=== PATIENT | male | born 2000 | race Caucasian/White ===

== ENCOUNTER 2021-10-28 15:42 | Inpatient (IN) ==
[2021-10-28 16:11] LABS: Basophils # (auto) 0.04 K/uL (0-0.2); Basophils % (auto) 0.8 %; Eosinophils # (auto) 0.06 K/uL (0-0.5); Eosinophils % (auto) 1.1 %; Hematocrit (blood only) 33.1 % (42-52); Hemoglobin 11.5 g/dL (14.0-18.0); Immature Granulocytes # (auto) 0.04 K/uL (0.00-0.02); Immature Granulocytes % (auto) 0.8 %; Lymphocytes # (auto) 1.39 K/uL (1.2-3.4); Lymphocytes % (auto) 26.1 %; Mean Corpuscular Hemoglobin 29.9 pg (25-34); Mean Corpuscular Hgb Conc 34.7 g/dL (32-36); Mean Corpuscular Volume 86.2 fL (80-100); Mean Platelet Volume 9.9 fL (7.4-10.4); Monocytes # (auto) 0.44 K/uL (0.11-0.59); Monocytes % (auto) 8.3 %; Neutrophils # (auto) 3.36 K/uL (1.4-6.5); Neutrophils % (auto) 62.9 %; Platelet Count 213 K/uL (130-400); RDW Coefficient of Variation 12.7 % (11.5-14.5); RDW Standard Deviation 39.6 fL (36.4-46.3); Red Blood Count 3.84 M/uL (4.7-6.1); White Blood Count 5.33 K/uL (4.8-10.8)
[2021-10-28 16:14] LABS: Appearance Urine Clear (Clear); Bilirubin Urine Negative (Negative); Blood Urine Negative (Negative); Color Urine Yellow; Glucose Urine UA Negative (Negative); Ketones Urine Negative (Negative); Leukocyte Esterase Urine Negative (Negative); Nitrite Urine Negative (Negative); Protein Urine Negative (Negative); Specific Gravity Urine 1.003 (1.000-1.030); Urobilinogen Urine Negative (Negative); pH Urine 7.5 (4.5-7.5)
[2021-10-28] MEDS ORDERED: SODIUM CHLORIDE 0.9% 1000ML 1,000 ML IV ONE (16:30)
[2021-10-28] MEDS ORDERED: GI COCKTAIL ED USE PO ONE (16:30)
[2021-10-28] MEDS ORDERED: PANTOprazole 80 MG in DEXTROSE 5% 100 ML IV STA (16:30)
--- NOTE | 2021-10-28 16:30 | Emergency Department Note ---
Impression & Plan Upper gastrointestinal hemorrhage, Anemia, Abdominal pain ED Provider Note NAME: PRIYA GARCIA AGE: 21 SEX: M : 2000 ARRIVES VIA: Walk-In INFORMANT: Patient ED PROVIDER(S): Stephon King DO CHIEF COMPLAINT: dark stools HPI: Patient is a 21-year-old male who is a college student who presents to the ER for dark stools which started this past Thursday. He noticed some epigastric abdominal pain. Walking to class today he felt a little dizzy and consequently went to [employer]. They checked his stools and noticed that it was heme positive and referred him in. He denies any chest pain or shortness of breath. No dysuria, urgency, or frequency. Pain in the epigastric region is a dull ache 1 out of 10. He denies any significant NSAID usage or steroid use. He does admit to drinking Thursday and Thursday weekly. He has about 10 drinks a week. No other exacerbating or remitting factors. He has an appoint with Dr. Louis this Thursday. ROS: See above HPI for pertinent positives & negatives. A total of 10 systems reviewed and were otherwise negative. PAST MEDICAL HISTORY:See Below PAST SURGICAL HISTORY:See Below FAMILY HISTORY:See Below SOCIAL HISTORY:See Below HOME MEDICATIONS:See Below ALLERGIES:See Below VITALS:See Below PHYSICAL EXAMINATION: GENERAL: Sitting up in bed, alert, well appearing, well nourished, no distress, non-toxic EYE EXAM: normal conjunctiva. PERRL and EOM's grossly intact. OROPHARYNX: no exudate, no erythema, lips, buccal mucosa, and tongue normal and mucous membranes are moist NECK: supple, no nuchal rigidity, no adenopathy, non-tender LUNGS: Clear to auscultation. Normal chest wall mechanics HEART: no murmurs, S1 normal and S2 normal ABDOMEN: abdomen soft, Pain tenderness in the epigastric region, normo-active bowel sounds, no masses, no rebound or guarding. UPPER EXTREMITIES: upper extremities are grossly normal. LOWER EXTREMITIES: No pitting edema. NEURO EXAM: Normal sensorium, cranial nerves II-XII grossly intact, normal speech, no gross weakness of arms, no gross weakness of legs. MEDICAL DECISION MAKING: Patient is a 21-year-old male who presents the ER for the below stated complaint. IV was established blood work was obtained. Labs show hemoglobin of 11.5. No previous to compare to. BMP was remarkable for slightly elevated glucose at 105. Bilirubin LFTs and lipase are unremarkable. UA was clean. Covid negative.CT abdomen pelvis showed no acute pathology. Stools are dark/black and tarry. Discussed with Dr. Bob Deal who agrees with admitting the patient and scoping in the morning. Updated the hospitalist in regards to this. Patient was given Protonix drip and bolus. Patient was also given IV fluids. Triage Nursing notes reviewed. Limited review of prior medical records performed Vital Signs: reviewed and remarkable for tachy Differential diagnosis: Differential diagnoses includes but is not limited to gastritis, peptic ulcer disease, GERD, gallbladder disease, pancreatitis, small bowel obstruction, acute coronary syndrome, pericarditis, ischemic bowel, irritable bowel disease, irritable bowel syndrome, appendicitis, diverticulitis, malignancy, hernia, urinary tract infection, torsion, perforation, trauma, infectious. ER treatment provided: See below Diagnostics interpreted by me: ECG: none Cardiac Monitoring: An order was placed for continuous cardiac monitoring. The monitor shows a rate of 99 with sinus rhythm. Laboratory studies: As stated above and show below. Imaging studies: See below Consultation(s): Discussed the hospitalist for further evaluation Discussed with Bob Deal from [facility] and they will scope in the morning Procedures: none Critical Care: None Past Med/Surg History Social History Smoking Status: Never smoker Feels Safe at Home: Yes Allergies Allergies Allergy/AdvReac Type Severity Reaction Status Date / Time amoxicillin Allergy Intermediate Hives Verified 10/28/21 17:31 Penicillins Allergy Intermediate Hives Verified 10/28/21 17:31 Home Meds Home Medications Medication Instructions Recorded Confirmed No Known Home Medications 10/28/21 10/28/21 Results & Data (ED) Vital Signs Vital Signs - 24 hr 10/28/21 15:44 10/28/21 16:01 10/28/21 17:07 Temperature 37.5 C Temperature Source Temporal Artery Scan Pulse Rate 109 H 100 H Respiratory Rate 16 15 Blood Pressure 140/79 Blood Pressure Mean 99 Pulse Oximetry 100 95 100 Oxygen Delivery Method Room Air Room Air Room Air Sepsis Recent Fever Within 48 Hours No Sepsis New/Unexplained Change in Mental Status N/A Sepsis Action Taken by Nursing No Action Required 10/28/21 17:30 10/28/21 18:00 10/28/21 18:30 Temperature Temperature Source Pulse Rate 102 H 104 H 106 H Respiratory Rate 21 20 18 Blood Pressure Blood Pressure Mean Pulse Oximetry 98 100 97 Oxygen Delivery Method Room Air Room Air Room Air Sepsis Recent Fever Within 48 Hours Sepsis New/Unexplained Change in Mental Status Sepsis Action Taken by Nursing 10/28/21 19:00 10/28/21 19:30 10/28/21 19:31 Temperature Temperature Source Pulse Rate 106 H 113 H 101 H Respiratory Rate 21 13 15 Blood Pressure 135/81 Blood Pressure Mean 99 Pulse Oximetry 96 Oxygen Delivery Method Room Air Sepsis Recent Fever Within 48 Hours Sepsis New/Unexplained Change in Mental Status Sepsis Action Taken by Nursing 10/28/21 20:00 Temperature Temperature Source Pulse Rate 100 H Respiratory Rate 17 Blood Pressure Blood Pressure Mean Pulse Oximetry 97 Oxygen Delivery Method Room Air Sepsis Recent Fever Within 48 Hours Sepsis New/Unexplained Change in Mental Status Sepsis Action Taken by Nursing Laboratory Data Result diagrams: 10/28/21 15:57 10/28/21 15:57 Lab Results 10/28/21 10/28/21 10/28/21 Range/Units 15:57 15:57 15:57 WBC 5.33 (4.8-10.8) K/uL RBC 3.84 L (4.7-6.1) M/uL Hgb 11.5 L (14.0-18.0) g/dL Hct 33.1 L (42-52) % MCV 86.2 (80-100) fL MCH 29.9 (25-34) pg MCHC 34.7 (32-36) g/dL RDW Std Deviation 39.6 (36.4-46.3) fL RDW Coeff of Hernán 12.7 (11.5-14.5) % Plt Count 213 (130-400) K/uL MPV 9.9 (7.4-10.4) fL Immature Gran % (Auto) 0.8 % Neut % (Auto) 62.9 % Lymph % (Auto) 26.1 % [place] % (Auto) 8.3 % Eos % (Auto) 1.1 % Baso % (Auto) 0.8 % Neut # (Auto) 3.36 (1.4-6.5) K/uL Lymph # (Auto) 1.39 (1.2-3.4) K/uL [place] # (Auto) 0.44 (0.11-0.59) K/uL Eos # (Auto) 0.06 (0-0.5) K/uL Baso # (Auto) 0.04 (0-0.2) K/uL Immature Gran # (Auto) 0.04 H (0.00-0.02) K/uL Sodium 136 (136-145) mmol/L Potassium 3.7 (3.5-5.1) mmol/L Chloride 101 (98-107) mmol/L Carbon Dioxide 29 (21-32) mmol/L Anion Gap 6 (3-11) BUN 17 (6-23) mg/dl Creatinine 0.82 (0.6-1.4) mg/dl Est Cr Clr Drug Dosing 155.1 ml/min Est GFR ( Amer) 145.5 ml/min Est GFR (Non-Af Amer) 125.5 ml/min BUN/Creatinine Ratio 20.7 H (10-20) Glucose 105 H (70-99(Fasting)) mg/dl Calcium 9.9 (8.5-10.1) mg/dl Total Bilirubin 0.5 (0.2-1.0) mg/dl AST 19 (13-39) U/L ALT 24 (7-52) U/L Alkaline Phosphatase 42 (34-104) U/L Total Protein 7.3 (6.0-8.3) gm/dl Albumin 4.7 (3.4-5.0) gm/dl Globulin 2.6 (2.5-4.0) gm/dl Albumin/Globulin Ratio 1.8 (0.9-2) Lipase 20 (11-82) U/L Urine Color Yellow Urine Appearance Clear (Clear) Urine pH 7.5 (4.5-7.5) Ur Specific [place] 1.003 (1.000-1.030) Urine Protein Negative (Negative) Urine Glucose (UA) Negative (Negative) Urine Ketones Negative (Negative) Urine Blood Negative (Negative) Urine Nitrite Negative (Negative) Urine Bilirubin Negative (Negative) Urine Urobilinogen Negative (Negative) Ur Leukocyte Esterase Negative (Negative) Administered Medications Pantoprazole Sodium 40 mg/ (Dextrose) 100 mls @ 20 mls/hr IV Q5H COLBY Stop: 11/27/21 18:44 Last Admin: 10/28/21 19:33 Dose: 8 mg/hr, 20 mls/hr Documented by: [id number] Discontinued Medications Al Hydrox/Mg Hydrox/Simethicone (Gi Cocktail Ed Use) 1 dose PO ONE ONE Stop: 10/28/21 16:31 Last Admin: 10/28/21 17:04 Dose: 1 dose Documented by: [id number] Sodium Chloride (Nss 1000ml) 1,000 mls @ 999 mls/hr IV .Q1H1M ONE Stop: 10/28/21 17:30 Last Infusion: 10/28/21 18:29 Dose: 0 mls/hr Documented by: [id number] Admin: 10/28/21 17:04 Dose: 999 mls/hr Documented by: [id number] Pantoprazole Sodium 80 mg/ (Dextrose) 100 mls @ 400 mls/hr IV ONE STA Stop: 10/28/21 16:44 Last Infusion: 10/28/21 18:29 Dose: 0 mls/hr Documented by: [id number] Admin: 10/28/21 17:58 Dose: 400 mls/hr Documented by: [id number] Ioversol (Optiray 320 125ml) 91 ml IV ONCE ONE Stop: 10/28/21 17:19 Last Admin: 10/28/21 17:18 Dose: 91 ml Documented by: [id number] Ioversol (Optiray 320 100ml) 91 ml IV ONCE ONE Stop: 10/28/21 17:19 Last Admin: 10/28/21 17:19 Dose: 91 ml Documented by: [id number] Imaging Data Radiologist's Impression: Abdomen/Pelvis CT 10/28/21 16:27 CT OF THE ABDOMEN AND PELVIS WITH CONTRAST CLINICAL HISTORY: epigastric abd pain dark stool hgb 11 COMPARISON STUDY: None. TECHNIQUE: Following IV administration of 91 mL of Optiray, axial images of the abdomen and pelvis were obtained from the lung bases to the proximal femurs. Images were reviewed in the axial, sagittal, and coronal planes. IV contrast was administered without complication. Automated exposure control was utilized for the study. A dose lowering technique was utilized adhering to the principles of ALARA. CT DOSE: 367.82 mGy.cm FINDINGS: Lung bases are unremarkable. No pneumatosis, free air or portal venous gas is present. There are no hepatic lesions. Liver morphology is normal. Mild splenomegaly is noted. No biliary or pancreatic ductal dilatation is present. The adrenal glands, kidneys and pancreas are normal. There is no hydronephrosis. The caliber and wall thickness of small and large bowel are normal. The appendix is normal. There is no ascites or lymphadenopathy. Bladder is mildly distended. Major vasculature is patent. IMPRESSION: 1. No acute process within the abdomen or pelvis. 2. Mild splenomegaly. 3. No bowel obstruction. No bowel wall thickening. Normal appendix. ACT 112: Negative or not required by law. Electronically signed by: Joon De Leon M.D. 10/28/2021 6:02 PM Discharge Plan Visit Data Chief Complaint: GI Assessment Stated Complaint: UPPER ABD PAIN- [facility] ED Provider: Stephon King Discharge Problem: Upper gastrointestinal hemorrhage, Anemia, Abdominal pain Patient Disposition: Admitted As Inpatient Discharge Instructions Interventions: ED Discharge Assessment Last Done: 10/28/21 21:20
[2021-10-28 16:45] LABS: Albumin Globulin Ratio 1.8 (0.9-2); Albumin Level 4.7 gm/dl (3.4-5.0); BUN Creatinine Ratio 20.7 (10-20); Bilirubin,Total 0.5 mg/dl (0.2-1.0); Calcium 9.9 mg/dl (8.5-10.1); Creatinine Clr Calc Pharmacy 155.1 ml/min; Est GFR (African American) 145.5 ml/min; Est GFR (Non-African American) 125.5 ml/min; Globulin 2.6 gm/dl (2.5-4.0); Potassium 3.7 mmol/L (3.5-5.1); Total Protein 7.3 gm/dl (6.0-8.3)
[2021-10-28] MEDS ORDERED: OPTIRAY 320 100ml IV ONE (17:18)
[2021-10-28] MEDS ORDERED: OPTIRAY 320 125ml IV ONE (17:18)
--- NOTE | 2021-10-28 18:03 | CT Scan Report ---
CT OF THE ABDOMEN AND PELVIS WITH CONTRAST CLINICAL HISTORY: epigastric abd pain dark stool hgb 11 COMPARISON STUDY: None. TECHNIQUE: Following IV administration of 91 mL of Optiray, axial images of the abdomen and pelvis we re obtained from the lung bases to the proximal femurs. Images were reviewed in the axial, sagittal, and coronal planes. IV contrast was administered without complication. Automated exposure control wa s utilized for the study. A dose lowering technique was utilized adhering to the principles of ALARA . CT DOSE: 367.82 mGy.cm FINDINGS: Lung bases are unremarkable. No pneumatosis, free air or portal venous gas is present. Ther e are no hepatic lesions. Liver morphology is normal. Mild splenomegaly is noted. No biliary or pancr eatic ductal dilatation is present. The adrenal glands, kidneys and pancreas are normal. There is no hydronephrosis. The caliber and wall thickness of small and large bowel are normal. The appendix is n ormal. There is no ascites or lymphadenopathy. Bladder is mildly distended. Major vasculature is carbone nt. IMPRESSION: 1. No acute process within the abdomen or pelvis. 2. Mild splenomegaly. 3. No bowel obstruction. No bowel wall thickening. Normal appendix. ACT 112: Negative or not required by law. Electronically signed by: Joon De Leon M.D. 10/28/2021 6:02 PM
[2021-10-28] MEDS ORDERED: PANTOPRAZOLE BOLUS/DRIP 1 EA IV STA (18:17)
[2021-10-28] MEDS: PANTOprazole 40 MG in DEXTROSE 5% 100 ML IV SCH (19:33)
[2021-10-28] MEDS ORDERED: ONDANSETRON INJ 2 MG/ML 2 ML VIAL IV PRN (21:25)
[2021-10-28] MEDS ORDERED: NITROGLYCERIN SL 0.4 MG/TAB TAB SL PRN (21:25)
--- NOTE | 2021-10-28 21:55 | History and Physical Report ---
DATE OF ADMISSION: 10/28/2021. CHIEF COMPLAINT: Melena. HISTORY OF PRESENT ILLNESS: This is a 21-year-old male with no significant past medical history. He is having some black stool since yesterday and also upper abdominal discomfort. He thought it would go away, but today when he was going to college, he noticed some chest discomfort, dizziness, palpitations, shortness of breath with exertion. It was not getting better when he came back from school and then he decided to come to the hospital. No nausea or vomiting. Currently, resting comfortably and hemodynamically stable, slightly tachycardic. During walking, he also has some chest discomfort. While resting, he has no symptoms. Denies any headache. No blurred visions, no earache. Yesterday, he had some runny nose, some sore throat, mild cough. Denies any fevers. Normal bladder movements. No swelling in the legs. The patient says he drinks alcohol 8-10 beers on , Fridays, and Saturdays, only, and he smokes marijuana a couple of times a week. Denies any [id number] Aleve or Motrin. Once in a while he takes ibuprofen, but not recently. ALLERGIES: AMOXICILLIN, PENICILLINS. PAST MEDICAL HISTORY: None. PAST SURGICAL HISTORY: None. FAMILY HISTORY: Denies any significant family history. SOCIAL HISTORY: Smokes marijuana a couple of times a week. Drinks alcohol on , Fridays, and Saturdays. Currently, a student at [employer]. PHYSICAL EXAMINATION: GENERAL: The patient is alert and oriented, not in acute distress. VITAL SIGNS: Temperature 37.5, pulse 109, respiratory rate 16, blood pressure 140/79, oxygen 100% on room air. HEENT: Extraocular muscles intact. Atraumatic. NECK: No JVD. No neck masses. CARDIOVASCULAR: S1 and S2 heard. Regular rate and rhythm. No murmur, no gallop. RESPIRATORY SYSTEM: Normal AP diameter. No accessory muscle use. No wheezing, no crackles. ABDOMEN: Soft, bowel sounds present. Mild epigastric discomfort. No guarding, no rigidity, no distention. CENTRAL NERVOUS SYSTEM: Cranial nerves II through XII are grossly intact, nonfocal. EXTREMITIES: No edema, no erythema. LABORATORY DATA: WBC 5.3, hemoglobin 11.5, hematocrit 33.1, platelets 213. Sodium 136, potassium 3.7, chloride 101, bicarbonate 29, BUN 17, creatinine 0.8, serum glucose 105, calcium 9.9, total bilirubin 0.5, AST 19, ALT 24, alkaline phosphatase 42, lipase 20. Urinalysis negative. SARS-CoV-2 negative. IMAGING DATA: CT of abdomen and pelvis, no acute process, mild splenomegaly. No bowel obstruction, no bowel wall thickening. Normal appendix. ASSESSMENT AND PLAN: This is a 21-year-old male who presents with gastrointestinal bleed. 1. Gastrointestinal bleed, melena: Probably alcoholic gastritis. Drinks 8-10 beers on , Fridays, and Saturdays. Started on Protonix drip, IV fluids, n.p.o. Hemoglobin is 11.5, most likely acute blood loss anemia from gastrointestinal bleed. Blood consent obtained. Monitor in the tele floor and consult GI for possible EGD in the a.m. 2. Deep venous thrombosis prophylaxis: Sequential compression devices. Job ID: [id number] [facility]
[2021-10-28] MEDS: D5W AND 1/2NSS 1,000 ML IV SCH (21:57)
[2021-10-29] MEDS: PANTOprazole 40 MG in DEXTROSE 5% 100 ML IV SCH ×3 (00:06→19:30)
[2021-10-29] MEDS: D5W AND 1/2NSS 1,000 ML IV SCH ×3 (05:45→21:20)
[2021-10-29 07:32] LABS: Basophils # (auto) 0.04 K/uL (0-0.2); Basophils % (auto) 1.2 %; Eosinophils # (auto) 0.09 K/uL (0-0.5); Eosinophils % (auto) 2.6 %; Hematocrit (blood only) 25.8 % (42-52); Hemoglobin 8.9 g/dL (14.0-18.0); Immature Granulocytes # (auto) 0.03 K/uL (0.00-0.02); Immature Granulocytes % (auto) 0.9 %; Lymphocytes # (auto) 1.48 K/uL (1.2-3.4); Lymphocytes % (auto) 42.8 %; Mean Corpuscular Hemoglobin 30.2 pg (25-34); Mean Corpuscular Volume 87.5 fL (80-100); Mean Platelet Volume 9.3 fL (7.4-10.4); Monocytes # (auto) 0.28 K/uL (0.11-0.59); Monocytes % (auto) 8.1 %; Neutrophils # (auto) 1.54 K/uL (1.4-6.5); Neutrophils % (auto) 44.4 %; Platelet Count 136 K/uL (130-400); RDW Standard Deviation 41.4 fL (36.4-46.3); Red Blood Count 2.95 M/uL (4.7-6.1); White Blood Count 3.46 K/uL (4.8-10.8)
[2021-10-29 07:42] LABS: Mean Corpuscular Hgb Conc 34.5 g/dL (32-36)
[2021-10-29 08:02] LABS: BUN Creatinine Ratio 20.5 (10-20); Calcium 8.3 mg/dl (8.5-10.1); Est GFR (African American) 148.5 ml/min; Est GFR (Non-African American) 128.1 ml/min; Magnesium 1.9 mg/dl (1.7-2.4); Potassium 3.9 mmol/L (3.5-5.1)
--- NOTE | 2021-10-29 08:35 | Gastrointestinal Consultation ---
Date of Consultation October 29, 2021 Assessment & Plan (1) Anemia: (2) Abdominal pain: (3) Melena: Pt is a 21 yo male w symptoms of upper abd pain, black tarry stools x 2 days, noted to be anemic on presentation. Hx of heavy ETOH and marijuana uses on the weekend. No NSAIDs, steroids. DDx: PUD, gastritis, esophagitis - Keep NPO - PPI gtt - Monitor blood ct and transfuse prn - EGD eval today by Dr. Soriano - Adviced to abstain from ETOH, marijuana products, avoid NSAIDs Supervising Physician Co-Signing Physician Notes I performed a history and physical examination of the patient today, including specifically on physical exam - soft abdomen. I have discussed the patient's management with the advanced practitioner. Please refer to the nurse practitioner's note for the documented findings and plan of care. EGD today Patient was explained in detail regarding risks, benefits, limitations and alternatives of the above endoscopic procedure. Risks of intravenous sedation used for procedure were also explained. Risks include, but not limited to perforation, bleeding, infection, respiratory distress, cardiac arrest and . Patient is also aware about the possibility of missed lesion. Patient's q uestions were answered. The patient verbalized understanding the information and agreed to undergo the procedure. History of Present Illness Reason for Consultation: GI bleed Requesting Physician: Dr. Faye Workman Attending Physician: Dr. Kimmy Soriano History of Present Illness Pt is a 21 yo male who presented yesterday w c/o black stools x 2 days and upper abd pain. He admits to be drinking large amt of ETOH and smokes marijuana over the weekend. Denies fever, chills, n/v. Stools was sticky black in color which is unusual for him. He denies Peptobismol, iron supplements. No NSAIDs, steroid uses. He denies hx of abd surgeries, family hx of GI issues/malignancies. On evaluation, noted to be anemic w Hgb 11 -> 8 this AM. BUN mildly up at 21. CT abd/pelvis unremarkable. VS stable. Allergies Allergy/AdvReac Type Severity Reaction Status Date / Time amoxicillin Allergy Intermediate Hives Verified 10/28/21 17:31 Penicillins Allergy Intermediate Hives Verified 10/28/21 17:31 Home Medications Medication Instructions Recorded Confirmed Type No Known Home Medications 10/28/21 10/28/21 History Patient History Social History Smoking Status: Never smoker Hx Alcohol Use: Yes Alcohol type: beer Hx Substance Use: Yes Substance Use Type Other:: rarely Preferred Language: Dutch Communication Ability: Effective Associate [employer] Required: No Beliefs That Will Affect Care: None Current Living Situation: Family Current Living Situation Comment: [employer] student - senior Other Information That Helps Us Care for You: No Feels Safe at Home: Yes Safety Concerns: Feels Safe At This Time Assistive Devices: None Review of Systems Review of Systems: All systems reviewed & are unremarkable except as noted in HPI & below Physical Exam Constitutional: WD/WN, vitals as above well groomed, cooperative and comfortable Eyes: PERRL, conjunctivae normal, anicteric sclerae ENMT: external ear and nose normal, oropharynx normal Respiratory: normal respiratory effort, lungs clear to auscultation Cardiovascular: RRR, no murmur, no edema Gastrointestinal (Abdomen): normal bowel sounds, soft, nontender, no hepatosplenomegaly Skin: no rashes, warm and dry no jaundice Psychiatric: A+Ox3, euthymic affect Lymphatic: no lymphedema Results & Data ([facility]) Vital Signs (Past 12 Hours) Vital Signs Temp Pulse Pulse Resp BP BP Pulse Ox 10/29/21 07:39 36.6 C 92 H 19 118/66 100 10/29/21 05:48 36.6 C 70 12 122/67 98 10/29/21 00:00 95 H 10/28/21 23:30 88 14 10/28/21 23:28 37.0 C 84 17 115/65 98 10/28/21 21:39 37.2 C 95 H 16 122/82 98 10/28/21 21:00 99 H 16 98 10/28/21 20:30 99 H 17 (1) Anemia Anemia type: unspecified type Qualified Code(s): D64.9 - Anemia, unspecified (2) Abdominal pain Abdominal location: unspecified location Qualified Code(s): R10.9 - Unspecified abdominal pain
--- NOTE | 2021-10-29 08:42 | Anesthesiology Consultation ---
Date of Service October 29, 2021 Assessment & Plan Chart Review Chart Review: Acceptable Risk for Surgery and Patient NOT seen in Pre Admission Testing Consults Requested none ASA ASA4 Proposed Anesthesia Anesthesia Type: MAC Additional Comments: covid test negative History Surgery Operation Date: 10/29/21 16:00 Proposed Procedures p Esophagogastroduodenoscopy Dr Soriano - Kimmy Soriano MD Height/Weight Height: 6 ft Weight: 90.1 kg Allergies Allergy/AdvReac Type Severity Reaction Status Date / Time amoxicillin Allergy Intermediate Hives Verified 10/28/21 17:31 Penicillins Allergy Intermediate Hives Verified 10/28/21 17:31 Medications Home Medications Medication Instructions Recorded Confirmed Last Taken No Known Home Medications 10/28/21 10/28/21 Unknown Active Medications Generic Name Dose Route Start Last Admin Trade Name Freq PRN Reason Stop Dose Admin Pantoprazole Sodium 40 mg/ 100 mls @ 20 mls/hr 10/28/21 18:45 10/29/21 05:45 Dextrose IV 11/27/21 18:44 8 mg/hr Q5H COLBY 20 mls/hr Administration 8 MG/HR Dextrose/Sodium Chloride 1,000 mls @ 125 mls/hr 10/28/21 21:25 10/29/21 05:45 D5w And 1/2nss IV 11/27/21 21:24 125 mls/hr .Q8H COLBY Administration Exercise / Class Metabolic Activity II 4-5 Yardwork/Stairs/Walk up hill Past Anesthesia History No Hx of Anesthesia Complications and No Family Hx of Anesthesia Complications History of PONV No Hx of PONV and No Hx of Motion Sickness Social History Smoking Status: Never smoker Hx Alcohol Use: Yes Alcohol type: beer alcohol intake frequency: a few times a week Alcohol Intake Frequency Comment: college student - weekend drinker Hx Substance Use: Yes substance use type: marijuana Substance Use Type Other:: rarely Physical Exam Vital Signs Last Vital Signs Temp 36.6 C 10/29/21 07:39 Pulse 92 H 10/29/21 07:39 Resp 19 10/29/21 07:39 BP 118/66 10/29/21 07:39 Pulse Ox 100 10/29/21 07:39 Testing Laboratory Results 10/29/21 07:20 10/29/21 07:20 Urine Color Yellow 10/28/21 15:57 Urine Appearance Clear (Clear) 10/28/21 15:57 Urine pH 7.5 (4.5-7.5) 10/28/21 15:57 Ur Specific [place] 1.003 (1.000-1.030) 10/28/21 15:57 Urine Protein Negative (Negative) 10/28/21 15:57 Urine Glucose (UA) Negative (Negative) 10/28/21 15:57 Urine Ketones Negative (Negative) 10/28/21 15:57 Urine Nitrite Negative (Negative) 10/28/21 15:57 Ur Leukocyte Esterase Negative (Negative) 10/28/21 15:57
[2021-10-29] MEDS ORDERED: ePHEDrine sulfate 50 MG/ML AMP IV PRN (09:11)
[2021-10-29] MEDS ORDERED: ATROPINE SULFATE 0.1 MG/ML 10ML SYR IV PRN (09:11)
[2021-10-29] MEDS ORDERED: fentaNYL citrate 100 MCG/2 ML VIAL ONE (09:19)
--- NOTE | 2021-10-29 09:34 | Hospitalist Progress Note ---
Date of Service October 29, 2021 Assessment & Plan Plan: Epigastric Pain Melena Upper GI bleed -Likely gastritis vs PUD in setting of heavy alcohol use -Patient denies being on blood thinners, taking NSAIDs -Hb 11.5--> 8.9 -Transfuse if Hb < 7 - H/H Q 6 hours x 24 hours -continue protonix drip -EGD later this morning Alcohol Abuse, binge drinking pattern -Lower likelihood of withdrawal, will monitor -counseled cessation Hypocalcemia -start PO repletion when able DVT ppx -SCDs Admission and Anticipated Discharge Date Admission Date: October 28, 2021 Subjective Less abdominal pain Reports drinking >10 alcoholic drink x 3 days then developed epigastric pain and melena on Thursday Denies prior episodes Denies vomitting blood Physical Exam Physical Exam: Appears stated age, no acute distress Respiratory: breathing comfortably on room air, no wheezing/rhonchi/rales Cardiovascular: regular rate and rhythm, no murmurs/rubs/gallops Gastrointestinal (Abdomen): soft, +epigastric tenderness no rebound Neurologic: awake, alert, spontaneously moving extremities Results & Data Results & Data ([facility]) Vital Signs (Past 12 Hours) Vital Signs Temp Pulse Pulse Resp BP BP Pulse Ox 10/29/21 07:39 36.6 C 92 H 19 118/66 100 10/29/21 05:48 36.6 C 70 12 122/67 98 10/29/21 00:00 95 H 10/28/21 23:30 88 14 10/28/21 23:28 37.0 C 84 17 115/65 98 10/28/21 21:39 37.2 C 95 H 16 122/82 98 Laboratory Results Short CBC 10/28/21 10/29/21 Range/Units 15:57 07:20 WBC 5.33 3.46 L (4.8-10.8) K/uL Hgb 11.5 L 8.9 L (14.0-18.0) g/dL Hct 33.1 L 25.8 L (42-52) % Plt Count 213 136 (130-400) K/uL BMP 10/28/21 10/29/21 15:57 07:20 Sodium 136 136 Potassium 3.7 3.9 Chloride 101 104 Carbon Dioxide 29 29 BUN 17 16 Creatinine 0.82 0.78 Glucose 105 H 109 H Calcium 9.9 8.3 L Liver Function 10/28/21 Range/Units 15:57 Total Bilirubin 0.5 (0.2-1.0) mg/dl AST 19 (13-39) U/L ALT 24 (7-52) U/L Alkaline Phosphatase 42 (34-104) U/L Albumin 4.7 (3.4-5.0) gm/dl Urine 10/28/21 Range/Units 15:57 Urine Color Yellow Urine Appearance Clear (Clear) Urine pH 7.5 (4.5-7.5) Ur Specific Blanca 1.003 (1.000-1.030) Urine Protein Negative (Negative) Urine Glucose (UA) Negative (Negative) Medications Administered Current Inpatient Medications Atropine Sulfate (Atropine Sulfate 0.1 Mg/Ml 10ml Syr) 0.5 mg IV Q1M PRN PRN Reason: PACU Use-HR<40 &/or Bradycardi Stop: 10/29/21 17:11 Ephedrine Sulfate (Ephedrine Sulfate 50 Mg/Ml Amp) 5 mg IV Q5M PRN PRN Reason: PACU Use Only-SBP<90 mmHg Stop: 10/29/21 17:11 Pantoprazole Sodium 40 mg/ (Dextrose) 100 mls @ 20 mls/hr IV Q5H COLBY Stop: 11/27/21 18:44 Last Admin: 10/29/21 05:45 Dose: 8 mg/hr, 20 mls/hr Documented by: Dextrose/Sodium Chloride (D5w And 1/2nss) 1,000 mls @ 125 mls/hr IV .Q8H COLBY Stop: 11/27/21 21:24 Last Admin: 10/29/21 05:45 Dose: 125 mls/hr Documented by: Nitroglycerin (Nitroglycerin Sl 0.4 Mg/Tab Tab) 0.4 mg SL UD PRN PRN Reason: Chest Pain Stop: 11/27/21 21:24 Ondansetron HCl (Ondansetron Inj 2 Mg/Ml 2 Ml Vial) 4 mg IV Q6H PRN PRN Reason: Nausea Stop: 11/27/21 21:24
--- NOTE | 2021-10-29 09:38 | GI REPORT ---
Patient Name: Red Downey Procedure Date: 10/29/2021 9:13 AM Date of : 2000 Admit Type: Inpatient Age: 21 Gender: Male Attending MD: Kimmy Soriano MD Procedure: Upper GI endoscopy Providers: Kimmy Soriano MD Referring MD: Jenny Workman Md Indications: Melena Medicines: Propofol per Anesthesia Complications: No immediate complications. Estimated Blood Loss: Estimated blood loss: none. Procedure: Pre-Anesthesia Assessment: - Prior to the procedure, a History and Physical was performed, and patient medications, allergies and sensitivities were reviewed. The patient's tolerance of previous anesthesia was reviewed. - The risks and benefits of the procedure and the sedation options and risks were discussed with the patient. All questions were answered and informed consent was obtained. - Patient identification and proposed procedure were verified prior to the procedure by the physician and the nurse. The procedure was verified in the procedure room. - Pre-procedure physical examination revealed no contraindications to sedation. After obtaining informed consent, the endoscope was passed under direct vision. Throughout the procedure, the patient's blood pressure, pulse, and oxygen saturations were monitored continuously. The Endoscope was introduced through the mouth, and advanced to the second part of duodenum. The upper GI endoscopy was accomplished without difficulty. The patient tolerated the procedure well. Findings: The examined esophagus was normal. The Z-line was regular and was found 40 cm from the incisors. Mild inflammation characterized by erythema was found in the gastric body. The duodenal bulb and second portion of the duodenum were normal. Impression: - Normal esophagus. - Gastritis. - Normal duodenal bulb and second portion of the duodenum. Recommendation: - [facility]. - Advance diet as tolerated. - Use a proton pump inhibitor PO daily for 3 months. - Alcohol cessation, - Recall GI if needed. Kimmy Soriano MD 10/29/2021 9:37:58 AM This report has been signed electronically. Note Initiated On: 10/29/2021 9:13 AM Number of Addenda: 0 I attest to the content of the Intraoperative Record and orders documented therein, exceptions below {[id number]}
--- NOTE | 2021-10-29 09:54 | Anesthesiology Progress Note ---
Date of Service October 29, 2021 Anesthesia Post Procedure Vital Signs Vital Signs: Temp Pulse Pulse Resp BP BP Pulse Ox 10/29/21 09:38 93 H 16 115/68 98 10/29/21 07:39 36.6 C 92 H 19 118/66 100 10/29/21 05:48 36.6 C 70 12 122/67 98 10/29/21 00:00 95 H 10/28/21 23:30 88 14 10/28/21 23:28 37.0 C 84 17 115/65 98 10/28/21 21:39 37.2 C 95 H 16 122/82 98 10/28/21 21:00 99 H 16 98 10/28/21 20:30 99 H 17 10/28/21 20:00 100 H 17 97 10/28/21 19:31 101 H 15 135/81 10/28/21 19:30 113 H 13 96 10/28/21 19:00 106 H 21 10/28/21 18:30 106 H 18 97 10/28/21 18:00 104 H 20 100 10/28/21 17:30 102 H 21 98 10/28/21 17:07 100 H 15 100 10/28/21 16:01 95 10/28/21 15:44 37.5 C 109 H 16 140/79 100 Transfer of Care Handoff Completed per policy Notes Mental Status: alert / awake / arousable Patient Amnestic to Procedure: Yes Nausea / Vomiting: adequately controlled Pain: adequately controlled Airway Patency, RR, SpO2: stable & adequate BP & HR: stable & adequate Hydration State: stable & adequate Anesthetic Complications: no major complications apparent
[2021-10-29] MEDS ORDERED: ONDANSETRON INJ 2 MG/ML 2 ML VIAL ONE (10:23)
[2021-10-29] MEDS ORDERED: PROPOFOL IV EMULSION 10 MG/ML 20 ML VIAL IV ONE (10:23)
[2021-10-29] MEDS ORDERED: LIDOCAINE 2% 2 ML VIAL/AMP(20MG/ML) INFIL ONE (10:23)
[2021-10-29 13:05] LABS: Hematocrit (blood only) 24.4 % (42-52); Hemoglobin 8.4 g/dL (14.0-18.0)
[2021-10-29 19:24] LABS: Hematocrit (blood only) 23.1 % (42-52); Hemoglobin 7.8 g/dL (14.0-18.0)
[2021-10-29] MEDS: PANTOprazole 40 MG TAB PO SCH (19:44)
[2021-10-30] MEDS: D5W AND 1/2NSS 1,000 ML IV SCH ×2 (05:31→14:40)
[2021-10-30 06:02] LABS: Basophils # (auto) 0.01 K/uL (0-0.2); Basophils % (auto) 0.2 %; Eosinophils # (auto) 0.12 K/uL (0-0.5); Eosinophils % (auto) 2.7 %; Hematocrit (blood only) 21.8 % (42-52); Hemoglobin 7.5 g/dL (14.0-18.0); Immature Granulocytes # (auto) 0.04 K/uL (0.00-0.02); Immature Granulocytes % (auto) 0.9 %; Lymphocytes # (auto) 1.58 K/uL (1.2-3.4); Lymphocytes % (auto) 35.8 %; Mean Corpuscular Hemoglobin 30.2 pg (25-34); Mean Corpuscular Hgb Conc 34.4 g/dL (32-36); Mean Corpuscular Volume 87.9 fL (80-100); Mean Platelet Volume 9.7 fL (7.4-10.4); Monocytes # (auto) 0.26 K/uL (0.11-0.59); Monocytes % (auto) 5.9 %; Neutrophils % (auto) 54.5 %; Platelet Count 154 K/uL (130-400); RDW Coefficient of Variation 13.1 % (11.5-14.5); RDW Standard Deviation 41.3 fL (36.4-46.3); Red Blood Count 2.48 M/uL (4.7-6.1); White Blood Count 4.41 K/uL (4.8-10.8)
[2021-10-30 06:20] LABS: BUN Creatinine Ratio 23.9 (10-20); Calcium 8.4 mg/dl (8.5-10.1); Creatinine Clr Calc Pharmacy 144.5 ml/min; Est GFR (African American) 141.3 ml/min; Est GFR (Non-African American) 121.9 ml/min; Magnesium 1.8 mg/dl (1.7-2.4); Potassium 3.9 mmol/L (3.5-5.1)
[2021-10-30 06:39] LABS: RBC Morphology Unremarkable
[2021-10-30] MEDS: PANTOprazole 40 MG TAB PO SCH (09:22)
[2021-10-30] MEDS ORDERED: ALUMINUM/MAGNESIUM SUSP 30 ML UDC ONE (10:53)
[2021-10-30] MEDS ORDERED: ALUMINUM/MAGNESIUM SUSP 30 ML UDC PO STA (10:54)
--- NOTE | 2021-10-30 11:30 | Hospitalist Progress Note ---
Date of Service October 30, 2021 Assessment & Plan (1) Upper gastrointestinal hemorrhage: (2) Melena: (3) Abdominal pain: (4) Anemia due to GI blood loss: Plan: Hemoglobin down to 7.9 today we will recheck hemoglobin at 4:00 today and possibly discharge in. He is status post EGD where they found gastritis. Will be on daily proton pump inhibitor for 3 months, no alcohol, no NSAIDS, Maalox given for CP. Labs Checked. ROS-No Headache, No Visual Changes, No Nausea, No Vomiting, No Fever, No Chills, No Neck Pain or Stiffness, No Chest Pain, No Palpitations, No SOB, No WILLAMS, No Cough, No Sputum, No Wheezing, No Abdominal Pain, No Diarrhea, No Hematemesis, No Hemoptysis, No Unexpected Weight Loss, No Flank pain, No Melena, No Hematochezia, No Frequency, No Urgency, No Burning, No Hematuria, No Rashes, No Diaphoresis. Appetite is Normal Physical Exam Gen-AAO x 3, NAD, Afebrile Head-NCAT, EOMI, PERRLA, Anicteric Sclera, No Posterior Pharyngeal Erythema Neck-Supple, No JVD, No Thyromegaly, No Masses, No LAD, No Bruits Lungs-Clear to Auscultation Bilaterally, No Rales, No Rhonchi, No Wheezing, No Crepitus Chest-No S4, +S1, +S2, No S3, No Murmurs, No Rubs, No Gallops, No Ectopy Abdomen-Soft, Bowel Sounds Present, Non Tender, Non Distended, No Hepatomegaly, No Splenomegaly, No Palpable Masses, No Rebound, No Rigidity, No Guarding Musculoskeletal-Full Range of Motion Bilaterally, No CVAT Extremities-No Cyanosis, No Clubbing, No Edema Nuero-Cranial Nerves II-XII grossly intact, Motor WNL, DTRs WNL, Strength WNL, Non Focal Psych-Normal Mood Admission and Anticipated Discharge Date Admission Date: October 28, 2021 Results & Data Results & Data ([facility]) Vital Signs (Past 12 Hours) Vital Signs Temp Pulse Resp BP Pulse Ox 10/30/21 07:36 75 10/30/21 05:20 36.8 C 69 12 123/58 L 99 10/30/21 00:00 80 Laboratory Results Reviewed (1) Abdominal pain Abdominal location: unspecified location Qualified Code(s): R10.9 - Unspecified abdominal pain
[2021-10-30 16:01] LABS: Hematocrit (blood only) 22.8 % (42-52); Hemoglobin 7.8 g/dL (14.0-18.0)
--- NOTE | 2021-10-30 16:39 | Discharge Summary ---
Date of Service October 30, 2021 Admission HPI Per Admitting Provider 21-year-old male with no significant past medical history. He is having some black stool since yesterday and also upper abdominal discomfort. He thought it would go away, but today when he was going to college, he noticed some chest discomfort, dizziness, palpitations, shortness of breath with exertion. It was not getting better when he came back from school and then he decided to come to the hospital. No nausea or vomiting. Currently, resting comfortably and hemodynamically stable, slightly tachycardic. During walking, he also has some chest discomfort. While resting, he has no symptoms. Denies any headache. No blurred visions, no earache. Yesterday, he had some runny nose, some sore throat, mild cough. Denies any fevers. Normal bladder movements. No swelling in the legs. The patient says he drinks alcohol 8-10 beers on , Fridays, and Saturdays, only, and he smokes marijuana a couple of times a week. Denies any [id number] Aleve or Motrin. Once in a while he takes ibuprofen , but not recently. Admission Exam Per Admitting Provider GENERAL: The patient is alert and oriented, not in acute distress. VITAL SIGNS: Temperature 37.5, pulse 109, respiratory rate 16, blood pressure 140/79, oxygen 100% on room air. HEENT: Extraocular muscles intact. Atraumatic. NECK: No JVD. No neck masses. CARDIOVASCULAR: S1 and S2 heard. Regular rate and rhythm. No murmur, no gallop. RESPIRATORY SYSTEM: Normal AP diameter. No accessory muscle use. No wheezing, no crackles. ABDOMEN: Soft, bowel sounds present. Mild epigastric discomfort. No guarding, no rigidity, no distention. CENTRAL NERVOUS SYSTEM: Cranial nerves II through XII are grossly intact, nonfocal. EXTREMITIES: No edema, no erythema. Principal Diagnosis Upper GI Bleed Alcohol Gastritis Acute GI Blood Loss anemia Melena Abd Pain Discharge Exam See below Discharge Data Allergies Allergy/AdvReac Type Severity Reaction Status Date / Time amoxicillin Allergy Intermediate Hives Verified 10/28/21 17:31 Penicillins Allergy Intermediate Hives Verified 10/28/21 17:31 Consultations 10/28/21 18:46 ED Decision to Admit Stat 10/29/21 08:00 Consult Gastroenterology Routine Procedures Performed Operation Date: 10/29/21 16:00 Actual Procedures p Esophagogastroduodenoscopy - Kimmy Soriano MD Ordered Studies 10/28/21 16:27 CT abd pelvis IV con only Stat Current Diagnoses Iron deficiency anemia secondary to blood loss (chronic) (10/28/21) Anemia, unspecified (10/28/21) Melena (10/28/21) Gastrointestinal hemorrhage, unspecified (10/28/21) Unspecified abdominal pain (10/28/21) Allergies amoxicillin Allergy (Intermediate, Verified 10/28/21 17:31) Hives Penicillins Allergy (Intermediate, Verified 10/28/21 17:31) Hives Height/Weight/Isolation Height 6 ft Weight 90.5 kg Chemistry 10/28/21 10/29/21 10/30/21 15:57 07:20 05:36 Sodium 136 136 138 Potassium 3.7 3.9 3.9 Chloride 101 104 105 Carbon Dioxide 29 29 30 Anion Gap 6 3 3 BUN 17 16 21 Creatinine 0.82 0.78 0.88 Glucose 105 H 109 H 105 H Hospital Course (1) Upper gastrointestinal hemorrhage: (2) Melena: (3) Abdominal pain: (4) Anemia due to GI blood loss: Hemoglobin stable discharge now. He is status post EGD where they found gastritis. Will be on daily proton pump inhibitor for 3 months, no alcohol, no NSAIDS, Maalox given for CP. Labs Checked. ROS-No Headache, No Visual Changes, No Nausea, No Vomiting, No Fever, No Chills, No Neck Pain or Stiffness, No Chest Pain, No Palpitations, No SOB, No WILLAMS, No Cough, No Sputum, No Wheezing, No Abdominal Pain, No Diarrhea, No Hematemesis, No Hemoptysis, No Unexpected Weight Loss, No Flank pain, No Melena, No Hematochezia, No Frequency, No Urgency, No Burning, No Hematuria, No Rashes, No Diaphoresis. Appetite is Normal Physical Exam Gen-AAO x 3, NAD, Afebrile Head-NCAT, EOMI, PERRLA, Anicteric Sclera, No Posterior Pharyngeal Erythema Neck-Supple, No JVD, No Thyromegaly, No Masses, No LAD, No Bruits Lungs-Clear to Auscultation Bilaterally, No Rales, No Rhonchi, No Wheezing, No Crepitus Chest-No S4, +S1, +S2, No S3, No Murmurs, No Rubs, No Gallops, No Ectopy Abdomen-Soft, Bowel Sounds Present, Non Tender, Non Distended, No Hepatomegaly, No Splenomegaly, No Palpable Masses, No Rebound, No Rigidity, No Guarding Musculoskeletal-Full Range of Motion Bilaterally, No CVAT Extremities-No Cyanosis, No Clubbing, No Edema Nuero-Cranial Nerves II-XII grossly intact, Motor WNL, DTRs WNL, Strength WNL, Non Focal Psych-Normal Mood Total Time Total Time Spent Total Time Spent (In Minutes): 45 mins Total Time Includes: Examination of the Patient, Discharge Planning, Medication Reconciliation and Communication With Other Providers Discharge Plan Discharge Items Patient Disposition: Home - Self-Care Reason For Visit: GI ASSESMENT Discharge Diagnosis: Upper GI Bleed Alcohol Gastritis Acute GI Blood Loss anemia Melena Abd Pain Condition on Discharge: Good Health Concerns: Recurrence of GI bleeding with Alcohol Use Activity: Per Instructions section Activity Comment: Return to work Fe11/13/21, Return to Class 11/01/21 Lifting: No more than 10 pounds Lifting Comment: for 2 weeks Bathing: No limitations Sexual Activity: When tolerated Exercise Comment: Wait 2-3 weeks Driving/Machine Use: No limitations Weightbearing: Full weightbearing Non-emergency contact: Primary Care Provider Call non-emergency contact if: you have any medication questions Follow-up/Referrals: PCP,NO [Primary Care Provider] - Diet: Regular Addtl Attending Provider Instructions: Abstain from Alcohol 3 months, No Aspirin, Aleve, Motrin, Avoid Onions, Caffeine, Cigarettes/Marijuana, Tomato Sauce Pending Studies at Discharge: No Stand-Alone Forms: My [facility] [place], Work/School Release, Smoking Cessation Medications and DC Order Prescriptions: New pantoprazole 40 mg Tablet,Delayed Release (Dr/Ec) 40 mg PO QAM Qty: 90 RF: 0 Slow Fe 142 mg (45 mg iron) tablet extended release 142 mg PO DAILY Qty: 30 RF: 0 Discharge Orders: Discharge Order (Routine); Ordered 10/30/21 Ordered By: Marcos Mercer Admission Data Admit Date/Time: 10/28/21 20:18 Attending Provider: Marcos Mercer Admit Provider: Pete Harris Primary Care Provider: PCP,NO Other Providers: Pete Harris ; Kimmy Soriano ; Elo Zimmer ; Faye Workman Other Interventions: Discharge Summary Assessment (RN) Last Done: 10/29/21 10:03
--- NOTE | 2021-10-30 21:22 | Electrocardiogram Report ---
Test Reason : Blood Pressure : / mmHG Vent. Rate : 091 BPM Atrial Rate : 091 BPM P-R Int : 158 ms QRS Dur : 088 ms QT Int : 366 ms P-R-T Axes : 066 062 036 degrees QTc Int : 450 ms Normal sinus rhythm Normal ECG No previous ECGs available Confirmed by Moises Kim ([id number]) on 10/30/2021 9:21:35 PM Referred By: REFERRED SELF Confirmed By:Moises Kim
== END 2021-10-30 17:15 | disposition home or self-care (01) | DRG 378 ==
LOC: ED 15:42 → SUATTDRO 20:18 → 1E 20:18
DX: D62 Acute posthemorrhagic anemia; F10.10 Alcohol abuse, uncomplicated; Z88.1 Allergy status to other antibiotic agents; E83.51 Hypocalcemia; Z88.0 Allergy status to penicillin; K29.21 Alcoholic gastritis with bleeding